=== PATIENT | female | born 1965 | race African-American/Black ===

== ENCOUNTER 2016-10-06 22:13 | Emergency (ER) | payer OTHER ==
[~2016-10-06] VITALS: Ht 165.1 cm; Wt 65.0 kg
[~2016-10-06 22:13] MED LIST: ALBU2TAB42 PO
[2016-10-06 22:36] LABS: GLUCOSE,POINT OF CARE 118 MG/DL (70-110)
[2016-10-06] MEDS ORDERED: ACETAMINOPHEN 500 MG TABLET ONE (23:24)
[2016-10-06] MEDS ORDERED: ACETAMINOPHEN 500 MG TABLET PO ONE (23:30)
[2016-10-06] MEDS ORDERED: ALBUTEROL SULFATE 2.5 MG/0.5 ML NEB SOLUTION NEB ONE (23:30)
[2016-10-06] MEDS ORDERED: IPRATROPIUM BROMIDE 0.5 MG/2.5 ML NEB SOLUTION NEB ONE (23:30)
[2016-10-06 23:45] LABS: BASOPHILS % (AUTO) 0.2 % (0.0-2.0); EOSINOPHILS % (AUTO) 0.1 % (1.0-6.0); HEMATOCRIT 41.7 % (36-46); HEMOGLOBIN 13.7 g/dL (12.0-16.0); LYMPHOCYTES # (AUTO) 1.4 K/uL (1.0-4.8); LYMPHOCYTES % (AUTO) 12.6 % (22.0-44.0); MEAN CORPUSCULAR HEMOGLOBIN 26.8 pg (26.0-34.0); MEAN CORPUSCULAR HGB CONC 32.8 G/dL (31.0-37.0); MEAN CORPUSCULAR VOLUME 82 fL (80-100); MONOCYTES # (AUTO) 1.6 K/uL (0.1-1.0); NEUTROPHILS # (AUTO) 8.2 K/uL (1.8-7.7); NEUTROPHILS % (AUTO) 73.1 % (40.0-70.0); PLATELET COUNT (AUTO) 313 K/uL (150-450); RED CELL DISTRIBUTION WIDTH 13.2 % (11.5-14.5); WHITE BLOOD COUNT (AUTO) 11.2 K/uL (4.5-11.0)
[2016-10-06] MEDS ORDERED: SODIUM CHLORIDE 0.9% 1,000 ML IV ONE (23:45)
[2016-10-06 23:53] LABS: CALCIUM, TOTAL 8.8 mg/dL (8.8-10.5); CREATININE 1.22 mg/dL (0.60-1.30); POTASSIUM 3.8 mmol/L (3.5-5.1)
[2016-10-06 23:59] LABS: ALBUMIN 3.5 g/dL (3.4-5.0); BILIRUBIN,TOTAL 0.3 mg/dL (0.1-1.0); TOTAL PROTEIN, SERUM 7.4 g/dL (6.4-8.2)
[2016-10-07] MEDS ORDERED: SODIUM CHLORIDE 0.9% 1,000 ML IV ONE (00:30)
[2016-10-07 00:52] LABS: GLUCOSE,POINT OF CARE 113 MG/DL (70-110)
[2016-10-07] MEDS ORDERED: KETOROLAC TROMETHAMINE 30 MG/ML VIAL IVP ONE (01:00)
[2016-10-07] MEDS ORDERED: ALBUTEROL SULFATE 2.5 MG/0.5 ML NEB SOLUTION NEB ONE (01:00)
[2016-10-07] MEDS ORDERED: IPRATROPIUM BROMIDE 0.5 MG/2.5 ML NEB SOLUTION NEB ONE (01:00)
[2016-10-07] MEDS ORDERED: MORPHINE SULFATE 4 MG/ML SYRINGE IVP ONE (01:00)
[2016-10-07] MEDS ORDERED: BENZONATATE 100 MG CAPSULE PO ONE (01:00)
[2016-10-07 01:19] LABS: INFLUENZA TYPE B NEGATIVE FOR TYPE B (NEGATIVE)
[2016-10-07 03:20] VITALS: BP 112/69
== END 2016-10-07 03:21 | disposition home or self-care (01) ==
LOC: EMS 22:15
DX: J10.1 Influenza due to other identified influenza virus with other respiratory manifestations (principal); F17.210 Nicotine dependence, cigarettes, uncomplicated
CPT/HCPCS: 36415; 71010; 80053; 82948; 82962; 84484; 85025; 87804; 94640; 96361; 96374; 99285; J1885; J7030 ×2; J7613 ×2; J2270

== ENCOUNTER 2019-06-11 10:19 | Emergency (ER) | payer OTHER ==
[~2019-06-11] VITALS: Ht 160 cm; Wt 81.8 kg
[2019-06-11 10:21] VITALS: BP 133/84
[2019-06-11] MEDS ORDERED: DOXYCYCLINE HYCLATE 100 MG CAPSULE PO ONE (11:30)
[2019-06-11] MEDS ORDERED: MUPIROCIN CALCIUM 2% 22 GM OINTMENT TP ONE (11:30)
== END 2019-06-11 12:00 | disposition home or self-care (01) ==
LOC: EMS 10:23
DX: S40.861A Insect bite (nonvenomous) of right upper arm, initial encounter (principal); S80.861A Insect bite (nonvenomous), right lower leg, initial encounter; L08.9 Local infection of the skin and subcutaneous tissue, unspecified; F17.210 Nicotine dependence, cigarettes, uncomplicated; W57.XXXA Bitten or stung by nonvenomous insect and other nonvenomous arthropods, initial encounter; Y93.89 Activity, other specified; Y92.89 Other specified places as the place of occurrence of the external cause; Y99.8 Other external cause status
CPT/HCPCS: 99406

== ENCOUNTER 2019-09-05 16:19 | Emergency (ER) | payer OTHER ==
[~2019-09-05] VITALS: Ht 167.6 cm; Wt 90.0 kg
[2019-09-05] MEDS ORDERED: IPRA4AER IH (16:26)
[2019-09-05 16:49] VITALS: BP 165/92
[2019-09-05] MEDS ORDERED: IPRATROPIUM BROMIDE 0.5 MG/2.5 ML NEB SOLUTION NEB ONE (19:15)
[2019-09-05] MEDS ORDERED: ALBUTEROL SULFATE 2.5 MG/0.5 ML NEB SOLUTION NEB ONE (19:15)
== END 2019-09-05 17:55 | disposition home or self-care (01) ==
LOC: EMS 16:22
DX: J45.901 Unspecified asthma with (acute) exacerbation (principal); F43.20 Adjustment disorder, unspecified; F17.210 Nicotine dependence, cigarettes, uncomplicated
CPT/HCPCS: 94640; 99406

== ENCOUNTER 2020-03-18 20:55 | Emergency (ER) | payer OTHER ==
[~2020-03-18] VITALS: Ht 167.6 cm; Wt 81.8 kg
[~2020-03-18 20:55] MED LIST changes: -ALBU2TAB42 PO; +IPRA4AER IH
[2020-03-18] MEDS ORDERED: KETOROLAC TROMETHAMINE 30 MG/ML VIAL IM ONE (21:30)
[2020-03-18 23:20] VITALS: BP 136/78
== END 2020-03-18 23:39 | disposition home or self-care (01) ==
LOC: EMS 20:55
DX: S50.12XA Contusion of left forearm, initial encounter (principal); M25.532 Pain in left wrist; J45.909 Unspecified asthma, uncomplicated; F17.210 Nicotine dependence, cigarettes, uncomplicated; W22.8XXA Striking against or struck by other objects, initial encounter; Y93.89 Activity, other specified; Y92.89 Other specified places as the place of occurrence of the external cause; Y99.8 Other external cause status
CPT/HCPCS: 73080; 73090; 73110; 82962; 96372; 99284; J1885

== ENCOUNTER 2020-08-29 09:01 | Emergency (ER) | payer OTHER ==
[~2020-08-29] VITALS: Ht 160 cm; Wt 75.0 kg
[2020-08-29] MEDS ORDERED: KETOROLAC TROMETHAMINE 30 MG/ML VIAL IM ONE (09:45)
[2020-08-29] MEDS ORDERED: HYDROCODONE/ACETAMINOPHEN 5-325 MG TABLET PO ONE (09:45)
[2020-08-29 10:08] LABS: GLUCOSE,POINT OF CARE 119 MG/DL (70-110)
[2020-08-29 10:30] VITALS: BP 154/85
== END 2020-08-29 11:14 | disposition home or self-care (01) ==
LOC: EMS 09:06
DX: M79.601 Pain in right arm (principal); J45.909 Unspecified asthma, uncomplicated; F17.210 Nicotine dependence, cigarettes, uncomplicated
CPT/HCPCS: 82962; 96372; 99283; J1885; 82948

== ENCOUNTER 2020-09-07 11:08 | Emergency (ER) | payer OTHER ==
[~2020-09-07] VITALS: Ht 161.3 cm; Wt 109.1 kg
[2020-09-07 11:20] VITALS: BP 177/103
[2020-09-07] MEDS ORDERED: IBUPROFEN 600 MG TABLET PO ONE (13:30)
== END 2020-09-07 13:50 | disposition home or self-care (01) ==
LOC: EMS 11:08
DX: S80.02XA Contusion of left knee, initial encounter (principal); J45.909 Unspecified asthma, uncomplicated; F17.210 Nicotine dependence, cigarettes, uncomplicated; W19.XXXA Unspecified fall, initial encounter; Y93.89 Activity, other specified; Y92.89 Other specified places as the place of occurrence of the external cause; Y99.8 Other external cause status

== ENCOUNTER 2020-11-10 10:38 | Emergency (ER) | payer OTHER ==
[~2020-11-10] VITALS: Ht 157.5 cm; Wt 81.8 kg
[2020-11-10 10:44] VITALS: BP 154/98
[2020-11-10] MEDS ORDERED: HYDROCODONE/ACETAMINOPHEN 5-325 MG TABLET PO ONE (11:00)
== END 2020-11-10 11:39 | disposition home or self-care (01) ==
LOC: EMS 10:39
DX: M12.811 Other specific arthropathies, not elsewhere classified, right shoulder (principal); J45.909 Unspecified asthma, uncomplicated; F17.210 Nicotine dependence, cigarettes, uncomplicated
CPT/HCPCS: 99283

== ENCOUNTER 2020-11-26 15:07 | Emergency (ER) | payer OTHER ==
[~2020-11-26] VITALS: Ht 157.5 cm; Wt 95.5 kg
[2020-11-26 15:13] VITALS: BP 170/100
[2020-11-26] MEDS ORDERED: IBUP-1506 PO (15:22)
[2020-11-26] MEDS ORDERED: CYCLOBENZAPRINE HCL 10 MG TABLET PO ONE (15:45)
[2020-11-26] MEDS ORDERED: LIDOCAINE 5% TRANSDERMAL PATCH TD ONE (15:45)
== END 2020-11-26 16:47 | disposition home or self-care (01) ==
LOC: EMS 15:07
DX: M54.2 Cervicalgia (principal); M79.601 Pain in right arm; M54.9 Dorsalgia, unspecified
CPT/HCPCS: 99283

== ENCOUNTER 2021-01-17 11:44 | Emergency (ER) | payer OTHER ==
[~2021-01-17] VITALS: Ht 162.6 cm; Wt 100.0 kg
[~2021-01-17 11:44] MED LIST changes: +IBUP-1506 PO
[2021-01-17] MEDS ORDERED: KETOROLAC TROMETHAMINE 60 MG/2 ML VIAL IM ONE (12:45)
[2021-01-17] MEDS ORDERED: METHOCARBAMOL 500 MG TABLET PO ONE (12:45)
[2021-01-17 13:00] VITALS: BP 154/89
== END 2021-01-17 13:16 | disposition home or self-care (01) ==
LOC: EMS 11:44
DX: S39.012A Strain of muscle, fascia and tendon of lower back, initial encounter (principal); J45.909 Unspecified asthma, uncomplicated; F17.210 Nicotine dependence, cigarettes, uncomplicated; X58.XXXA Exposure to other specified factors, initial encounter; Y93.89 Activity, other specified; Y92.89 Other specified places as the place of occurrence of the external cause; Y99.8 Other external cause status
CPT/HCPCS: 96372; 99283; J1885

== ENCOUNTER 2021-12-04 03:08 | Emergency (ER) | payer OTHER ==
[~2021-12-04] VITALS: Ht 157.5 cm; Wt 81.8 kg
[~2021-12-04 03:08] MED LIST changes: -IBUP-1506 PO
[2021-12-04] MEDS ORDERED: NAPROXEN 250 MG TABLET PO ONE (03:45)
[2021-12-04] MEDS ORDERED: ACETAMINOPHEN 325 MG TABLET PO ONE (03:45)
[2021-12-04 03:51] VITALS: BP 148/97
[2021-12-04] MEDS ORDERED: NAPR-1025 PO (03:51)
== END 2021-12-04 04:04 | disposition home or self-care (01) ==
LOC: EMS 03:09
DX: M79.601 Pain in right arm (principal); M54.2 Cervicalgia; J45.909 Unspecified asthma, uncomplicated; F17.210 Nicotine dependence, cigarettes, uncomplicated
CPT/HCPCS: 99283

== ENCOUNTER 2022-08-29 10:33 | Emergency (ER) | payer OTHER ==
[~2022-08-29] VITALS: Ht 157.5 cm; Wt 95.5 kg
[~2022-08-29 10:33] MED LIST changes: +NAPR-1025 PO
[2022-08-29] MEDS ORDERED: KETOROLAC TROMETHAMINE 60 MG/2 ML VIAL IM ONE (13:00)
[2022-08-29 14:34] VITALS: BP 135/68
== END 2022-08-29 14:37 | disposition home or self-care (01) ==
LOC: EMS 10:45
DX: M19.041 Primary osteoarthritis, right hand (principal); J45.909 Unspecified asthma, uncomplicated; F17.210 Nicotine dependence, cigarettes, uncomplicated
CPT/HCPCS: 99283; 73120; 96372; J1885

== ENCOUNTER 2023-09-22 10:22 | Emergency (ER) | payer OTHER ==
[~2023-09-22] VITALS: Ht 160 cm; Wt 79.5 kg
[~2023-09-22 10:22] MED LIST changes: -NAPR-1025 PO
[2023-09-22 10:45] VITALS: TEMP 98.6
[2023-09-22 11:05] LABS: EOSINOPHILS % (AUTO) 1.9 % (1.0-6.0); HEMATOCRIT 38.3 % (36-46); HEMOGLOBIN 13.3 g/dL (12.0-16.0); LYMPHOCYTES # (AUTO) 2.3 K/uL (1.0-4.8); LYMPHOCYTES % (AUTO) 35.6 % (22.0-44.0); MEAN CORPUSCULAR HEMOGLOBIN 27.6 pg (26.0-34.0); MEAN CORPUSCULAR HGB CONC 34.8 G/dL (31.0-37.0); MEAN CORPUSCULAR VOLUME 79 fL (80-100); MONOCYTES # (AUTO) 0.7 K/uL (0.1-1.0); MONOCYTES % (AUTO) 11.1 % (2.0-9.0); NEUTROPHILS # (AUTO) 3.3 K/uL (1.8-7.7); NEUTROPHILS % (AUTO) 50.4 % (40.0-70.0); PLATELET COUNT (AUTO) 261 K/uL (150-450); RED BLOOD CELL COUNT(AUTO) 4.83 MIL/uL (4.00-5.20); RED CELL DISTRIBUTION WIDTH 14.3 % (11.5-14.5); WHITE BLOOD COUNT (AUTO) 6.5 K/uL (4.5-11.0)
[2023-09-22 11:19] LABS: PROTHROMBIN TIME 10.3 SEC (9.4-11.6)
[2023-09-22 11:27] LABS: TROPONIN I-HIGH SENSITIVITY 16 ng/L (<51)
[2023-09-22 11:28] LABS: B-TYPE NATRIURETIC PEPTIDE 87 pg/mL (0-100)
[2023-09-22 11:34] LABS: ANION GAP 10 mmol/L (8-16); CALCIUM, TOTAL 8.9 mg/dL (8.8-10.5); CARBON DIOXIDE 26 mmol/L (22-29); CHLORIDE 107 mmol/L (98-107); CREATININE 0.92 mg/dL (0.60-1.30); GLOMERULAR FILTR. RATE CALC > 60 mL/min (>60); GLUCOSE,RANDOM 113 mg/dL (70-110); POTASSIUM 4.2 mmol/L (3.5-5.1); SODIUM SERUM 143 mmol/L (136-145); UREA NITROGEN, BLOOD 18 mg/dL (7-18)
[2023-09-22 12:02] LABS: ALANINE AMINOTRANSFERASE 24 U/L (12-78); ALBUMIN 3.7 g/dL (3.4-5.0); ALKALINE PHOSPHATASE 64 U/L (46-116); ASPARTATE AMINOTRANSFERASE 21 U/L (15-37); BILIRUBIN,TOTAL 0.3 mg/dL (0.1-1.0); CREATINE KINASE, TOTAL ONLY 202 U/L (26-192); TOTAL PROTEIN, SERUM 6.9 g/dL (6.4-8.2)
[2023-09-22 12:54] LABS: APPEARANCE,URINE CLEAR (CLEAR); BILIRUBIN,URINE NEGATIVE (NEGATIVE); COLOR,URINE LIGHT YELLOW (YELLOW); GLUCOSE, URINE (UA) NEGATIVE (NEGATIVE); KETONES,URINE NEGATIVE (NEGATIVE); LEUKOCYTE ESTERASE ,URINE LARGE (NEGATIVE); NITRATE,URINE NEGATIVE (NEGATIVE); OCCULT BLOOD,URINE NEGATIVE (NEGATIVE); PH,URINE 6.5 (5.0-8.0); PROTEIN,URINE TRACE mg/dL (NEGATIVE); SPECIFIC GRAVITIY, URINE 1.021 (1.003-1.030); UROBILINOGEN,URINE <=1.0 mg/dL (<=1.0)
[2023-09-22 13:10] LABS: BACTERIA,URINE Few /HPF (None Seen); RBC,URINE 0-2 /HPF (0-2); SQUAMOUS EPITHELIAL CELL,UR Few /LPF (None Seen)
[2023-09-22] MEDS ORDERED: CEPHALEXIN MONOHYDRATE 500 MG CAPSULE PO ONE (13:15)
[2023-09-22] MEDS ORDERED: FLUORESCEIN SODIUM 1 MG STRIP OU ONE (13:15)
[2023-09-22] MEDS ORDERED: HYDROCODONE/ACETAMINOPHEN 5-325 MG TABLET PO ONE (13:45)
[2023-09-22] MEDS ORDERED: CEPH-558 PO (13:49)
[2023-09-22] MEDS ORDERED: MOXI3DRO25 OS (13:49)
[2023-09-22 14:05] VITALS: BP 149/79; PULSE 78; RESP 18
== END 2023-09-22 14:07 | disposition admitted as inpatient to this hospital (09) ==
LOC: EMS 10:22
DX: S05.02XA Injury of conjunctiva and corneal abrasion without foreign body, left eye, initial encounter (principal); N39.0 Urinary tract infection, site not specified; R42 Dizziness and giddiness; M19.90 Unspecified osteoarthritis, unspecified site; J45.909 Unspecified asthma, uncomplicated; F17.210 Nicotine dependence, cigarettes, uncomplicated; X58.XXXA Exposure to other specified factors, initial encounter; Y93.89 Activity, other specified; Y92.89 Other specified places as the place of occurrence of the external cause; Y99.8 Other external cause status
CPT/HCPCS: 70450; 71045; 80053; 81001; 82550; 83880; 84484; 85025; 85610; 85730; 93005; 99285; 36415-L1; 36415-TC

== ENCOUNTER 2024-06-30 08:26 | Emergency (ER) | payer OTHER ==
[~2024-06-30] VITALS: Ht 157.5 cm; Wt 63.6 kg
[~2024-06-30 08:26] MED LIST changes: +CEPH-558 PO; -IPRA4AER IH; +MOXI3DRO25 OS
[2024-06-30 08:31] VITALS: BP 153/78; PULSE 85; RESP 14; TEMP 97.9; O2SAT 98
[2024-06-30] MEDS: ACETAMINOPHEN 325 MG TABLET PO ONE (09:01)
[2024-06-30] MEDS: KETOROLAC TROMETHAMINE 30 MG/ML VIAL IM ONE (09:01)
[2024-06-30] MEDS ORDERED: IBUP-1506 PO (09:20)
[2024-06-30] MEDS ORDERED: ACET-3385 PO (09:20)
== END 2024-06-30 09:25 | disposition home or self-care (01) ==
LOC: EMS 08:26
DX: M79.601 Pain in right arm (principal); J45.909 Unspecified asthma, uncomplicated; F17.210 Nicotine dependence, cigarettes, uncomplicated
CPT/HCPCS: 99283; 96372; J1885

== ENCOUNTER 2025-02-08 02:16 | Emergency (ER) | payer OTHER ==
[~2025-02-08] VITALS: Ht 162.6 cm; Wt 65.9 kg
[~2025-02-08 02:16] MED LIST changes: +ACET-3385 PO; +IBUP-1506 PO
[2025-02-08 04:10] VITALS: BP 180/112; PULSE 82; RESP 20; TEMP 99.1; O2SAT 99
[2025-02-08] MEDS: TraMADol HCL 50 MG TABLET PO ONE (05:26)
[2025-02-08] MEDS ORDERED: AMLO-257 PO (06:40)
[2025-02-08] MEDS ORDERED: MELO-107 PO (06:40)
[2025-02-08] MEDS: KETOROLAC TROMETHAMINE 30 MG/ML VIAL IM ONE (06:47)
[2025-02-08] MEDS: AmLODIPine BESYLATE 5 MG TABLET PO ONE (06:48)
== END 2025-02-08 06:57 | disposition home or self-care (01) ==
LOC: EMS 02:17
DX: M79.18 Myalgia, other site (principal); M17.0 Bilateral primary osteoarthritis of knee; I10 Essential (primary) hypertension; J45.909 Unspecified asthma, uncomplicated; F17.210 Nicotine dependence, cigarettes, uncomplicated; Z79.1 Long term (current) use of non-steroidal anti-inflammatories (NSAID); Z79.899 Other long term (current) drug therapy
CPT/HCPCS: 99283; 96372; J1885